=== PATIENT | male | born 1995 | race Two or more races ===

== ENCOUNTER 2024-08-08 11:23 | Emergency (ER) | payer OTHER ==
[2024-08-08] MEDS ORDERED: AZITHROMYCIN 250 MG TABLET ONE (11:55)
[2024-08-08] MEDS ORDERED: NAPROXEN 500 MG TABLET ONE (11:55)
[2024-08-08 11:58] VITALS: BP 118/80; PULSE 82; RESP 18; TEMP 98.7; BMI 33.9
[2024-08-08] MEDS: NAPROXEN 500 MG TABLET PO ONE (12:00)
== END 2024-08-08 13:43 | disposition home or self-care (01) ==
LOC: FER 11:23
DX: S89.91XA Unspecified injury of right lower leg, initial encounter (principal); X50.1XXA Overexertion from prolonged static or awkward postures, initial encounter
CPT/HCPCS: 73562-TC-RT-FY; 99283-25